=== PATIENT | male | born 1965 | race Caucasian/White ===

== ENCOUNTER 2022-08-23 16:09 | Emergency (ER) | payer BC, SELFPAY ==
[2022-08-23 16:23] VITALS: BP 115/80; PULSE 85; RESP 16; TEMP 36.9; O2SAT 97
--- NOTE | 2022-08-23 16:33 | ED.URI ---
HPI - URI/Sore Throat General Chief Complaint: Upper Respiratory Infection Stated Complaint: chills/abd pain /cough Time Seen by Provider: 08/23/22 16:46 Source: patient and RN notes reviewed Mode of arrival: ambulatory Limitations: no limitations History of Present Illness HPI Narrative: 57-year-old male presents with concern for 6 day history of chills, cough, upper chest discomfort, fatigue, abdominal discomfort, nasal congestion and ear pain. Reports exposure to COVID. MD elicited complaint: cough and sore throat Related Data Home Medications Medication Instructions Recorded Confirmed glimepiride 4 mg tablet mg 08/23/22 metformin 1,000 mg tablet mg 08/23/22 pantoprazole 40 mg tablet,delayed mg PO 08/23/22 08/23/22 release Allergies Allergy/AdvReac Type Severity Reaction Status Date / Time codeine AdvReac VOMITING Verified 08/23/22 16:20 Review of Systems Review of Systems: CONSTITUTIONAL: Denies malaise, chills, sweats, fatigue EYES: Denies visual changes, redness, or discharge. ENT: Reports rhinorrhea, congestion, ear pain. Denies sinus pain, otalgia CARDIOVASCULAR: Denies chest pain, palpitations, or edema. RESPIRATORY: Reports cough and chest congestion. Denies dyspnea. GASTROINTESTINAL: Reports abdominal pain. Denies nausea, vomiting, diarrhea SKIN: Denies rash or itching. MUSCULOSKELETAL: Reports myalgia. NEUROLOGIC: Denies headache. All systems reviewed & are unremarkable except as noted in HPI and below PMFSH Past Medical History Medical History (Updated 08/23/22 @ 16:52 by Neeta Antoine NP) Diabetes Gout Heart disease Surgical History Surgical History (Updated 10/26/20 @ 16:38 by Jeri Thao CMA) History of back surgery History of nasal surgery Comments At time of signature, agree with nursing past medical, surgical, social and family history. There is no relevant family history pertinent to the presenting complaint Exam Narrative: GENERAL: Nontoxic appearing and in no acute distress. HEAD: Normocephalic EYES: PERRLA, conjunctivae clear ENT: Nares clear, turbinates edematous and erythematous, clear discharge. Mucous membranes moist. Right TM pearly jameson with dull light reflex, left TM erythematous and; no tragal tenderness. Oropharynx not erythematous without lesions. Tonsils not enlarged and without exudate, no drooling, no hoarseness, no trismus, uvula midline. NECK: Supple. No lymphadenopathy CHEST: Clear to auscultation, breath sounds equal. No wheezing, rhonchi, rales, or stridor. No respiratory distress, speaks in full sentences. HEART: Regular rate and rhythm. No murmur heard. SKIN: Warm, dry, no rash. NEURO: Alert and oriented x3. PSYCH: Normal mood and affect Course Course Emergency Course: Patient is aware of diagnosis, understands and agrees to treatment plan. Anticipatory guidance given. Patient agrees to follow-up as directed and is aware of reasons to seek care at the emergency department. Portions of this record may have been created with voice recognition software Level of Care: Express Care Visit Vital Signs Vital signs: Vital Signs Temperature 98.4 F 08/23/22 16:23 Pulse Rate 85 08/23/22 16:23 Respiratory Rate 16 08/23/22 16:23 Blood Pressure 115/80 08/23/22 16:23 Pulse Oximetry 97 08/23/22 16:23 Oxygen Delivery Room Air 08/23/22 16:23 Temperature 98.4 F 08/23/22 16:23 Pulse Rate 85 08/23/22 16:23 Respiratory Rate 16 08/23/22 16:23 Blood Pressure 115/80 08/23/22 16:23 Pulse Oximetry 97 08/23/22 16:23 Oxygen Delivery Room Air 08/23/22 16:23 Reviewed. MDM - URI/Sore Throat MDM Narrative Medical decision making narrative: Differential diagnosis considered: Hua virus, strep pharyngitis, allergic rhinitis, upper respiratory tract infection, sinusitis, rhinosinusitis, nasopharyngitis. viral pharyngitis, otitis media, otitis externa, pneumonia, bronchitis, viral cough syndrome, viral syndrom
== END 2022-08-23 17:25 | disposition home or self-care (01) ==
PROVIDERS: Emergency Provider Nurse Practitioner
DX: H66.92 Otitis media, unspecified, left ear (principal); J40 Bronchitis, not specified as acute or chronic; Z20.822 Contact with and (suspected) exposure to COVID-19; E11.9 Type 2 diabetes mellitus without complications; M10.9 Gout, unspecified
CPT/HCPCS: 87426; 99213; C9803; G0463

== ENCOUNTER 2022-11-15 09:39 | Day surgery (SDC) | payer BC, SELFPAY ==
[2022-11-15] VITALS (10 sets, daily range): BP systolic 111–165; BP diastolic 75–106; PULSE 70–95; RESP 13–18; TEMP 36.4–36.7; O2SAT 93–100
--- NOTE | ~2022-11-15 | XR_ITS ---
Supine and upright views of the abdomen Clinical history: Abdominal pain Findings: Bowel gas pattern is nonspecific. No evidence for obstruction or free air. Peripherally james cified structure right upper quadrant suggest large gallstone. Osseous structures are intact. Impression: No definite renal stone seen. Probable large right upper quadrant gallstone. Reviewed, dictated and finalized at [facility]. Impression: No definite renal stone seen. Probable large right upper quadrant gallstone.
--- NOTE | ~2022-11-15 | CT_ITS ---
Non-contrast CT scan of the Abdomen and Pelvis Clinical indication: Left flank pain Technique: 2.5 mm axial scans were obtained through the abdomen and pelvis without intravenous or or al contrast. Dose reduction technique was used on this scan by utilizing automated exposure control a nd iterative reconstruction technique. The dose-length product (DLP) was 461.14 mGy-cm. COMPARISON: 03/07/2012 Findings: Images through the lung bases reveal subcentimeter groundglass nodules in the right lower lobe, compatible with infectious process. There is a 4 mm distal left ureteral stone (axial image 168). There is mild left hydroureteronephrosi s. No right renal or right ureteral stone. No right hydronephrosis. The liver, spleen, pancreas, and adrenals appear normal. 2.3 cm gallstone present. There is no aortic aneurysm. There is no evidence of bowel obstruction. Normal appendix. Images through the pelvis were performed. There is no evidence of ascites or lymphadenopathy. Urinary bladder unremarkable. No pelvic mass seen. Impression: 4 mm distal left ureteral stone with mild left hydroureteronephrosis. Cholelithiasis. Multiple subtle groundglass pulmonary nodular opacities in the right lower lobe, suspicious for atypi james infectious process. Reviewed, dictated and finalized at location . Impression: 4 mm distal left ureteral stone with mild left hydroureteronephrosis. Cholelithiasis. Multiple subtle groundglass pulmonary nodular opacities in the right lower lobe , suspicious for atypical infectious process.
--- NOTE | ~2022-11-15 | XR_ITS ---
EXAMINATION: XR retrograde pyelo w/stent LT DATE: 11/15/2022 15:44 INDICATION: Left ureteral stent placement TECHNIQUE: Fluoroscopic images from a left internal ureteral stent placement are submitted for review . 20 seconds of fluoroscopy time. 13 fluoroscopic images. FINDINGS: There is a left double-J internal ureteral stent projecting in expected position, with proximal [place] loop at the level of the renal pelvis and distal loop in the pelvis within the bladder lumen. IMPRESSION: 1. Left internal ureteral stent placement. Please refer to real-time procedural findings for detail s. Reviewed, dictated and finalized at location [facility]. IMPRESSION: 1. Left internal ureteral stent placement. Please refer to real-time procedur al findings for details.
[2022-11-15] MEDS: ONDANSETRON INJ 4 MG/2 ML VIAL IV PUSH (10:00)
[2022-11-15] MEDS: fentaNYL CITRATE INJ (*CRX) 100 MCG/2 ML VIAL IV PUSH (10:01)
--- NOTE | 2022-11-15 10:03 | PC.NURSE ---
Pt to CT scan via stretcher at this time.
[2022-11-15 10:04] LABS: Basophils Percent Auto 0.7 % (0.2-1.2); Eosinophils Absolute Auto 0.2 K/mm3 (0-0.3); Eosinophils Percent Auto 3.8 % (0-4.4); Hematocrit 46.6 % (42.0-52.0); Hemoglobin 15.6 g/dL (14.0-18.0); Immature Granulocyte Absolute 0.01 K/mm3 (0.00-0.031); Immature Granulocyte Percent A 0.2 % (0-0.5); Lymphocytes Absolute Auto 1.25 K/mm3 (0.9-3.2); Lymphocytes Percent Auto 27.9 % (18.3-44.2); Mean Corpuscular HGB Conc 33.5 g/dl (32-36); Mean Corpuscular Hemoglobin 28.7 pg (26-34); Mean Corpuscular Volume 85.8 fl (80-100); Mean Platelet Volume 10.2 fl (7.4-10.4); Monocytes Absolute Auto 0.4 K/mm3 (0.1-0.6); Monocytes Percent Auto 8.9 % (2.6-8.5); Neutrophils Absolute Auto 2.6 K/mm3 (1.3-6.7); Neutrophils Percent Auto 58.5 % (45.5-73.1); Platelet Count Result 236 k/mm3 (150-375); Red Blood Count 5.43 M/mm3 (4.6-6.20); Red Cell Distribution Width 12.5 % (11.5-14.5); White Blood Count 4.5 K/mm3 (4.5-10.0)
--- NOTE | 2022-11-15 10:14 | ED.ABDPAIN ---
HPI - Abdominal Pain General Chief Complaint: Abdominal Pain Stated Complaint: left flank pain Time Seen by Provider: 11/15/22 09:43 Source: patient Mode of arrival: ambulatory Limitations: no limitations History of Present Illness HPI narrative: This is a 57-year-old male presents to the ED with chief complaint of left flank pain beginning this morning. Patient reports the flank pain radiates into the left side of the abdomen. He reports urinary frequency and malodorous urine. He reports history of stones and had a lithotripsy about 7 years ago. Did not take any medications prior to arrival. Also endorses nausea and vomiting. Denies fevers, chills, chest pain, shortness of breath, problems with BMs. Related Data Home Medications Medication Instructions Recorded Confirmed glimepiride 4 mg tablet 4 mg PO BID 08/23/22 11/15/22 metformin 1,000 mg tablet 1,000 mg PO BID 08/23/22 11/15/22 atorvastatin 20 mg tablet 20 mg PO DAILY 11/15/22 11/15/22 azithromycin 250 mg tablet 250 mg PO DAILY 11/15/22 11/15/22 benzonatate 200 mg capsule 200 mg PO TID 11/15/22 11/15/22 candesartan 32 1 tablet PO HS 11/15/22 11/15/22 mg-hydrochlorothiazide 25 mg tablet diltiazem HCl 120 mg 120 mg PO DAILY 11/15/22 11/15/22 capsule,extended release 24 hr escitalopram oxalate 20 mg tablet 20 mg PO HS 11/15/22 11/15/22 insulin glargine U-300 conc 300 15 unit subcut DAILY 11/15/22 11/15/22 unit/mL (1.5 mL) subcutaneous pen (Toujeo SoloStar U-300 Insulin) Allergies Allergy/AdvReac Type Severity Reaction Status Date / Time codeine AdvReac VOMITING Verified 11/15/22 09:57 Review of Systems Review of Systems: CONSTITUTIONAL: Denies fever, chills, or sweats. EYES: Denies visual changes, redness, or discharge. ENT: Denies rhinorrhea, congestion, sore throat, or otalgia. CARDIOVASCULAR: Denies chest pain, palpitations, or edema. RESPIRATORY: Denies cough or dyspnea. GASTROINTESTINAL: See HPI GENITOURINARY: Denies dysuria or hematuria. SKIN: Denies rash or itching. MUSCULOSKELETAL: Denies back pain, joint pain, or myalgia. NEUROLOGIC: Denies headache, numbness, dizziness, or weakness. PSYCHIATRIC: Denies anxiety or depression. [facility] Past Medical History Medical History (Updated 11/15/22 @ 14:10 by Leroy Bueno MD) Diabetes Diabetes Gout Heart disease HTN (hypertension) Surgical History Surgical History History of back surgery History of nasal surgery Exam Narrative: GENERAL: Appears uncomfortable, writhing in bed. HEAD: Normocephalic, atraumatic. EYES: PERRLA and EOMI. ENT: Nares clear, no rhinorrhea or epistaxis. Mucous membranes moist. Oropharynx without tonsillar hypertrophy exudate or other lesions. NECK: Supple. No adenopathy or masses. CHEST: No respiratory distress. Clear to auscultation. No wheezes rales or rhonchi HEART: Regular rate and rhythm. No murmur heard. Normal peripheral pulses. ABDOMEN: Marked left flank tenderness present. Mild left lower quadrant tenderness. Soft, nontender, nondistended, normal active bowel sounds. EXTREMITIES: Normal range of motion. No edema. SKIN: Warm, dry, no rash. NEURO: Alert and oriented x3. No focal deficits. PSYCH: Normal mood and affect. Course Course Emergency Course: Consult 1311: Spoke with Dr. Velazquez (urology) who recommends outpatient surgery to remove the stone today. One of the PAs will see the patient here and then patient will be discharged for outpatient procedure. Vital Signs Vital signs: Vital Signs Temperature 98 F 11/15/22 09:44 Pulse Rate 95 11/15/22 09:44 Respiratory Rate 18 11/15/22 09:44 Blood Pressure 165/106 H 11/15/22 09:44 Pulse Oximetry 100 11/15/22 09:44 Oxygen Delivery Room Air 11/15/22 09:44 Temperature 98.0 F 11/15/22 15:48 Pulse Rate 80 11/15/22 17:21 Respiratory Rate 16 11/15/22 17:21 Blood Pressure 124/75 11/15/22 17:21 Pulse Oximetry 9
[2022-11-15 10:33] LABS: Appearance Urine Cloudy (Clear); Bacteria Urine None Seen /hpf; Bilirubin Urine 1+ (Negative); Blood Urine 3+ (Negative); Calcium Oxalate Crystals Urine Present /hpf; Color Urine Dark Yellow (Yellow); Glucose Urine UA Trace mg/dL (Negative); Ketones Urine 1+ mg/dL (Negative); Leukocyte Esterase Ur Trace LEU/UL (Negative); Need Manual Microscopic Reviewed; Nitrate Urine Negative (Negative); Non Pathogenic Casts 0-2; Protein Urine 2+ mg/dL (Negative); RBC Urine >100 /hpf (0-2); Squamous Epithelial Cell Urine Occasional /hpf (Few)
[2022-11-15 10:34] LABS: Add Urine Microscopic? YES; Specific Grav Ur 1.039 (1.001-1.035)
[2022-11-15 10:36] LABS: Alanine Aminotransferase 35 U/L (6-50); Albumin Level 4.6 g/dL (3.5-5.1); Alkaline Phosphatase 117 U/L (38-126); Anion Gap 10 mmol/L (8-16); Aspartate Amino Transferase 28 U/L (17-59); Bilirubin,Total 0.9 mg/dL (0.2-1.3); Blood Urea Nitrogen 18 mg/dL (9-20); Calcium 9.2 mg/dL (8.4-10.2); Carbon Dioxide 24 mmol/L (22-30); Chloride 107 mmol/L (98-107); Estimated CRCL calculation 98 ml/min; Estimated Glomerular Filt Rate > 60; Glucose 185 mg/dL (65-110); Sodium 141 mmol/L (137-145)
[2022-11-15] MEDS: fentaNYL CITRATE INJ (*CRX) 100 MCG/2 ML VIAL 50 MCG IV PUSH ×2 (12:46→13:55)
--- NOTE | 2022-11-15 12:50 | PC.NURSE ---
This RN called pts contact Deloris at [phone] per pts request to ask contact to come be w/ pt and give update on pt status.
--- NOTE | 2022-11-15 13:29 | PM.IMHP ---
H&P: HPI History of Present Illness Date/Time: 11/15/22 13:29 Chief Complaint: Obstructing left distal ureteral calculus with renal colic 5 mm Narrative: Pleasant 57-year-old male who presented to the emergency room with severe left flank pain. Evaluation emergency room revealed a 4-5 mm distal left ureteral stone. His white count is normal and he is afebrile however the there unable to control his pain. As such we have decided to proceed with definitive therapy with cysto left retrograde pyelogram left ureteroscopy with possible holmium laser stone extraction and stent placement. Patient has a history of a stone about 6-7 years ago. Denied fevers at home. Review of Systems Review of Systems: All systems reviewed & are unremarkable except as noted in HPI and below PMFSH Past Medical History Medical History Diabetes Gout Heart disease Surgical History Surgical History History of back surgery History of nasal surgery Meds Home Medications and Allergies Home Medications Medication Instructions Recorded Confirmed Type amoxicillin 875 mg tablet 875 mg PO TID 10 days #30 tabs 08/23/22 Rx glimepiride 4 mg tablet mg 08/23/22 History metformin 1,000 mg tablet mg 08/23/22 History methylprednisolone 4 mg tablets in See Rx Instructions PO .COMPLEX 08/23/22 Rx a dose pack (Medrol (Les)) #21 ea pantoprazole 40 mg tablet,delayed mg PO 08/23/22 08/23/22 History release promethazine-DM 6.25 mg-15 mg/5 mL 5 ml PO Q4-6H PRN cough #120 mL 08/23/22 Rx oral syrup ondansetron 4 mg disintegrating 4 mg PO Q8H PRN nausea and 11/15/22 Rx tablet vomiting #10 tabs tamsulosin 0.4 mg capsule (Flomax) 0.4 mg PO DAILY #7 caps 11/15/22 Rx Allergies Allergy/AdvReac Type Severity Reaction Status Date / Time codeine AdvReac VOMITING Verified 11/15/22 09:57 Vital Signs Vital Signs - 24 hr 11/15/22 09:44 11/15/22 10:19 11/15/22 11:57 Temperature 36.6 C Pulse Rate 95 71 73 Respiratory Rate 18 15 15 Blood Pressure 165/106 H 149/79 H 146/77 H Pulse Oximetry 100 95 96 Oxygen Delivery Room Air Exam Const: General: cooperative; No comfortable Eyes: General: appearance normal, both eyes and all related structures Resp: Effort & Inspection: normal respiratory effort Cardio: Rate: regular rate Rhythm: regular rhythm GI: Inspection: normal to inspection H&P: Results Labs Labs: Short CBC 11/15/22 Range/Units 09:55 WBC 4.5 (4.5-10.0) K/mm3 Hgb 15.6 (14.0-18.0) g/dL Hct 46.6 (42.0-52.0) % Plt Count 236 (150-375) k/mm3 BMP 11/15/22 09:55 Sodium 141 Potassium 4.0 Chloride 107 Carbon Dioxide 24 BUN 18 Creatinine 1.00 Glucose 185 H Calcium 9.2 Liver Function 11/15/22 Range/Units 09:55 Total Bilirubin 0.9 (0.2-1.3) mg/dL AST 28 (17-59) U/L ALT 35 (6-50) U/L Alkaline Phosphatase 117 (38-126) U/L Albumin 4.6 (3.5-5.1) g/dL Urine 11/15/22 Range/Units 09:55 Urine Color Dark yellow (Yellow) Urine Appearance Cloudy H (Clear) Urine pH 5.0 (5.0-9.0) Ur Specific [place] 1.039 H (1.001-1.035) Urine Protein 2+ H (Negative) mg/dL Urine Glucose (UA) Trace H (Negative) mg/dL Assessment and Plan Assessment and plan (1) Calculus of distal left ureter: Code(s): N20.1 - Calculus of ureter Status: Acute Plan Proceed with cysto, left retrograde pyelogram, left ureteroscopy with holmium laser, stone extraction, stent placement
[2022-11-15] MEDS: LACTATED RINGERS 1,000 ML 30 ML IV CONT (13:45)
--- NOTE | 2022-11-15 14:09 | WPDANESEPPF ---
Anes - Initial Pre Proc Eval Procedure: Operation Date: 11/15/22 14:30 Proposed Procedures p Cystoscopy, Left Ureteroscopy, Left Retrograde Pyelogram, Stone Extraction, Possible Holmium Laser Lithotripsy, Possible Left Ureteral Stent Placement - Valdemar Velazquez MD Date/Time: 11/15/22 14:09 Surgeon: Valdemar Velazquez MD Pre Op Diagnosis: left flank pain Patient Data Age: 57 Gender: M Height: 1.83 m Weight: 118.2 kg Last Vital Signs Temp 36.6 C 11/15/22 09:44 Pulse 73 11/15/22 11:57 Resp 15 11/15/22 11:57 BP 146/77 H 11/15/22 11:57 Pulse Ox 96 11/15/22 11:57 O2 Del Method Room Air 11/15/22 09:44 Allergies Allergy/AdvReac Type Severity Reaction Status Date / Time codeine AdvReac VOMITING Verified 11/15/22 09:57 Home Medications Medication Instructions Recorded Confirmed Type amoxicillin 875 mg tablet 875 mg PO TID 10 days #30 tabs 08/23/22 Rx glimepiride 4 mg tablet mg 08/23/22 History metformin 1,000 mg tablet mg 08/23/22 History methylprednisolone 4 mg tablets in See Rx Instructions PO .COMPLEX 08/23/22 Rx a dose pack (Medrol (Les)) #21 ea pantoprazole 40 mg tablet,delayed mg PO 08/23/22 08/23/22 History release promethazine-DM 6.25 mg-15 mg/5 mL 5 ml PO Q4-6H PRN cough #120 mL 08/23/22 Rx oral syrup ondansetron 4 mg disintegrating 4 mg PO Q8H PRN nausea and 11/15/22 Rx tablet vomiting #10 tabs tamsulosin 0.4 mg capsule (Flomax) 0.4 mg PO DAILY #7 caps 11/15/22 Rx Laboratory Tests 11/15/22 11/15/22 11/15/22 09:55 09:55 09:55 WBC 4.5 K/mm3 K/mm3 (4.5-10.0) RBC 5.43 M/mm3 M/mm3 (4.6-6.20) Hgb 15.6 g/dL g/dL (14.0-18.0) Hct 46.6 % % (42.0-52.0) MCV 85.8 fl fl (80-100) MCH 28.7 pg pg (26-34) MCHC 33.5 g/dl g/dl (32-36) RDW 12.5 % % (11.5-14.5) Plt Count 236 k/mm3 k/mm3 (150-375) MPV 10.2 fl fl (7.4-10.4) Immature Gran % (Auto) 0.2 % % (0-0.5) Neut % (Auto) 58.5 % % (45.5-73.1) Lymph % (Auto) 27.9 % % (18.3-44.2) [place] % (Auto) 8.9 % H % (2.6-8.5) Eos % (Auto) 3.8 % % (0-4.4) Baso % (Auto) 0.7 % % (0.2-1.2) Lymph # (Auto) 1.25 K/mm3 K/mm3 (0.9-3.2) [place] # (Auto) 0.4 K/mm3 K/mm3 (0.1-0.6) Eos # (Auto) 0.2 K/mm3 K/mm3 (0-0.3) Baso # (Auto) 0.0 K/mm3 K/mm3 (0.0-0.1) Abs Immat Gran (auto) 0.01 K/mm3 K/mm3 (0.00-0.031) Absolute Neuts (auto) 2.6 K/mm3 K/mm3 (1.3-6.7) Absolute Nucleated RBC 0.0 K/mm3 K/mm3 (0.0-0.012) Nucleated RBC % 0.0 % % (0.0-0.2) Sodium 141 mmol/L mmol/L (137-145) Potassium 4.0 mmol/L mmol/L (3.4-5.0) Chloride 107 mmol/L mmol/L (98-107) Carbon Dioxide 24 mmol/L mmol/L (22-30) Anion Gap 10 mmol/L mmol/L (8-16) BUN 18 mg/dL mg/dL (9-20) Creatinine 1.00 mg/dL mg/dL (0.7-1.3) Estim Creat Clear Calc 98 ml/min ml/min Estimated GFR > 60 (59 - ) Glucose 185 mg/dL H mg/dL (65-110) Calcium 9.2 mg/dL mg/dL (8.4-10.2) Total Bilirubin 0.9 mg/dL mg/dL (0.2-1.3) AST 28 U/L U/L (17-59) ALT 35 U/L U/L (6-50) Alkaline Phosphatase 117 U/L U/L (38-126) Total Protein 8.0 g/dL g/dL (6.3-8.2) Albumin 4.6 g/dL g/dL (3.5-5.1) Urine Color Dark yellow (Yellow) Urine Appearance Cloudy H (Clear) Urine pH 5.0 (5.0-9.0) Ur Specific [place] 1.039 H (1.001-1.035) Urine Protein 2+ mg/dL H mg/dL (Negative) Urine Glucose (UA) Trace mg/dL H mg/dL (Negative) Urine Ketones 1+ mg/dL H mg/dL (Negative) Ur Blood (Man) 3+ H (Negative) Urine Nitrate Negative (Negative) Urine Bili
--- NOTE | 2022-11-15 14:48 | WPDHPUPDATE1 ---
History and Physical Update Update Date/Time: 11/15/22 14:48 History and Physical has been reviewed, including an updated exam of the patient. There are NO changes in the patient's condition. Risks, benefits, and alternatives have been discussed and questions answered. Patient agrees to proceed with procedure. Proceed with cysto, left retrograde, left ureteroscopy with stone extraction, possible laser, stent placement
[2022-11-15 15:03] LABS: Glucose Point of Care 153 mg/dl (65-105)
[2022-11-15] MEDS: ceFAZolin 2 GM/D5W 50 ML 2 GM/50 ML BAG IVPB (15:13)
[2022-11-15] MEDS: LIDOCAINE HCL 2% GEL UROJET 10 ML PKG MUCOUS MEM (15:26)
--- NOTE | 2022-11-15 15:43 | W.PM.PROC2 ---
Procedure Note - Detailed Date of Procedure 11/15/22 Pre-op Diagnosis left flank pain with left ureteral calculus Post-op Diagnosis Same Procedure Performed Cystoscopy, left retrograde pyelogram, left ureteroscopy, left ureteral stent placement, extraction of left ureteral calculus Surgeon Valdemar Velazquez MD Anesthesia General Description of Procedure Patient is taken to the operative suite correctly identified. Once anesthesia was obtained was placed in dorsal lithotomy position and prepped and draped usual sterile fashion. Twenty-two [place] scope was inserted the bladder he does have some lateral lobe hypertrophy and elevated median bar area. Both ureteral orifices normal anatomic position. The left orifice was cannulated with a guidewire. It did not meet any resistance but given her CT findings we went ahead and dilated with an 8/10 dilator. Rigid ureteral scope was inserted in the orifice. It was edematous and erythematous. No stone was visualized. At this point a flexible ureteral scope was inserted all the way up to the kidney and the entire kidney was inspected. No tumors or stones noted. Pyelogram was then performed to confirm stent placement of the stent. 4.8 [place] contour stent was then placed with the proximal end coiled in the renal pelvis and distal in the bladder. I then reinspected the bladder and was noted that I saw a stone which was somewhat lodged behind the bladder neck area and the trigone. I was able to retrieve this and sent it for analysis. 2% viscous lidocaine was inserted into the urethra patient is taken recovery stable condition. He will be discharged home with pain meds and antibiotic and follow up in a week for stent removal. Please send a copy of op note to my office. Estimated Blood Loss 0 Drains Yes Packing No Pathology Yes Complications No immediate complications Condition Stable Disposition PACU
--- NOTE | 2022-11-15 17:36 | SUR.PHASEII ---
1730-PT READY TO DISCHARGE, SIGNIFICANT OTHER NOT HERE, MSG LEFT.
== END 2022-11-15 18:03 | disposition home or self-care (01) ==
LOC: ANHED 13:21 → ANHSURGERY 13:36
PROVIDERS: Emergency Provider Physician Assistant; PCP Internal Medicine; Visit Provider Urology
PROC: (CPT 52352; principal; 2022-11-15 14:30)
DX: N13.2 Hydronephrosis with renal and ureteral calculous obstruction (principal); E11.9 Type 2 diabetes mellitus without complications; I11.9 Hypertensive heart disease without heart failure; M10.9 Gout, unspecified; Z79.84 Long term (current) use of oral hypoglycemic drugs; Z79.4 Long term (current) use of insulin
CPT/HCPCS: 52332; 52352; 36415; 74018; 74176; 74420; 80053; 81001; 82365; 82948; 85025; 87086; 88300; 96374; 96375; 96376; 99285; C1769; C2617; J0690; J2250; J2405; J2704; J3010; J7120

== ENCOUNTER 2022-11-17 12:15 | Emergency (ER) | payer BC, SELFPAY ==
--- NOTE | ~2022-11-17 | CT_ITS ---
Non-contrast CT scan of the Abdomen and Pelvis Clinical indication: Left flank pain Technique: 2.5 mm axial scans were obtained through the abdomen and pelvis without intravenous or or al contrast. Dose reduction technique was used on this scan by utilizing automated exposure control a nd iterative reconstruction technique. The dose-length product (DLP) was 1123.35 mGy-cm. COMPARISON: 11/15/2022 Findings: Images through the lung bases reveal patchy groundglass opacities at the right lung base, compatible with pneumonia. Left ureteral stent is now in place. Left hydronephrosis is resolved. There is minimal left periurete ral stranding. Previously noted distal left ureteral stone is no longer visualized. Right kidney unre markable. The liver, spleen, pancreas, and adrenals appear normal. Stable calcified gallstone. There is no aort ic aneurysm. There is no evidence of bowel obstruction. Images through the pelvis were performed. There is no evidence of ascites or lymphadenopathy. Urinary bladder unremarkable. Prostate gland and seminal vesicles are unremarkable. Impression: Status post interval placement of left ureteral stent. There is mild left periureteral inflammatory s tranding, nonspecific. Previously identified distal left ureteral stone is no longer visualized. No left hydronephrosis. Right lower lobe pneumonia, unchanged. Cholelithiasis. Reviewed, dictated and finalized at location . Impression: Status post interval placement of left ureteral stent. There is mild left periu reteral inflammatory stranding, nonspecific. Previously identified distal left ureteral stone is no longer visualized. No le ft hydronephrosis. Right lower lobe pneumonia, unchanged. Cholelithiasis.
[2022-11-17 12:21] VITALS: BP 132/84; PULSE 90; RESP 33; TEMP 36.5; O2SAT 100
--- NOTE | 2022-11-17 12:50 | ECG_ITS ---
Measurements Intervals [place] Rate: 85 P: 45 DC: 192 QRS: -18 QRSD: 105 T: 44 QT: 387 QTc: 461 Interpretive Statements SINUS RHYTHM NONSPECIFIC ST AND T-WAVE ABNORMALITY NO PREVIOUS ECG AVAILABLE FOR COMPARISON Electronically Signed On 11-17-2022 18:34:06 CDT by Carina Reid M.D.
[2022-11-17 13:20] LABS: Bacteria Urine None Seen /hpf; Non Pathogenic Casts 0-2; RBC Urine >100 /hpf (0-2); Squamous Epithelial Cell Urine None seen /hpf (Few)
[2022-11-17 13:48] LABS: Appearance Urine Turbid (Clear); Bilirubin Urine 1+ (Negative); Blood Urine 3+ (Negative); Color Urine Orange (Yellow); Glucose Urine UA Negative (Negative); Ketones Urine Trace mg/dL (Negative); Leukocyte Esterase Ur 2+ LEU/UL (Negative); Nitrate Urine Negative (Negative); Protein Urine 2+ mg/dL (Negative); Specific Grav Ur 1.016 (1.001-1.035)
--- NOTE | 2022-11-17 13:53 | PC.NURSE ---
Pt thinks he has a kidney stone on the left side. Pt recently had stents placed for kidney stones. States he is having pain in his left flank. Painful urination and bleeding with urination. States these symptoms have been ongoing prior to the stent but feels the pain and bleeding have increased this morning.
[2022-11-17 13:54] LABS: Basophils Percent Auto 0.4 % (0.2-1.2); Eosinophils Absolute Auto 0.1 K/mm3 (0-0.3); Eosinophils Percent Auto 0.8 % (0-4.4); Hemoglobin 14.6 g/dL (14.0-18.0); Immature Granulocyte Absolute 0.04 K/mm3 (0.00-0.031); Immature Granulocyte Percent A 0.6 % (0-0.5); Lymphocytes Absolute Auto 0.92 K/mm3 (0.9-3.2); Mean Corpuscular HGB Conc 33.2 g/dl (32-36); Mean Corpuscular Hemoglobin 28.4 pg (26-34); Mean Corpuscular Volume 85.6 fl (80-100); Mean Platelet Volume 9.8 fl (7.4-10.4); Monocytes Absolute Auto 0.6 K/mm3 (0.1-0.6); Monocytes Percent Auto 8.1 % (2.6-8.5); Neutrophils Absolute Auto 5.5 K/mm3 (1.3-6.7); Neutrophils Percent Auto 77.1 % (45.5-73.1); Platelet Count Result 238 k/mm3 (150-375); Red Blood Count 5.14 M/mm3 (4.6-6.20); Red Cell Distribution Width 12.1 % (11.5-14.5); White Blood Count 7.1 K/mm3 (4.5-10.0)
[2022-11-17 13:55] LABS: Add Urine Microscopic? YES
--- NOTE | 2022-11-17 14:00 | ED.GENADULT ---
HPI - General Adult General Chief complaint: Urogenital-Male Stated complaint: kidney stone- peeing blodo Time Seen by Provider: 11/17/22 13:53 History of Present Illness HPI narrative: 57-year-old male presented the ED for evaluation of increased left flank pain with associated nausea and vomiting. Patient had a stent placed by Dr. Velazquez. Patient did take some tramadol this morning but did have emesis immediately afterwards. Patient states he did have increased pain with urination. Patient has also been having hematuria. Related Data Home Medications Medication Instructions Recorded Confirmed glimepiride 4 mg tablet 4 mg PO BID 08/23/22 11/15/22 metformin 1,000 mg tablet 1,000 mg PO BID 08/23/22 11/15/22 atorvastatin 20 mg tablet 20 mg PO DAILY 11/15/22 11/15/22 azithromycin 250 mg tablet 250 mg PO DAILY 11/15/22 11/15/22 benzonatate 200 mg capsule 200 mg PO TID 11/15/22 11/15/22 candesartan 32 1 tablet PO HS 11/15/22 11/15/22 mg-hydrochlorothiazide 25 mg tablet diltiazem HCl 120 mg 120 mg PO DAILY 11/15/22 11/15/22 capsule,extended release 24 hr escitalopram oxalate 20 mg tablet 20 mg PO HS 11/15/22 11/15/22 insulin glargine U-300 conc 300 15 unit subcut DAILY 11/15/22 11/15/22 unit/mL (1.5 mL) subcutaneous pen (Toujeo SoloStar U-300 Insulin) Allergies Allergy/AdvReac Type Severity Reaction Status Date / Time codeine AdvReac VOMITING Verified 11/17/22 12:25 Review of Systems Review of Systems: All systems reviewed & are unremarkable except as noted in HPI and below PMFSH Past Medical History Medical History (Updated 11/17/22 @ 15:52 by Arash Alicia MD) Diabetes Diabetes Gout Heart disease HTN (hypertension) Surgical History Surgical History History of back surgery History of nasal surgery Exam Narrative: APPEARANCE: Well appearing, uncomfortable due to left flank pain HEAD: normocephalic, atraumatic. EYES: PERRLA/EOMI, conjunctivae clear. NECK: Supple. No adenopathy, no masses. RESPIRATORY: Airway patent, respirations nonlabored. Clear to auscultation bilaterally, no rales, rhonchi, wheezing. CARDIOVASCULAR: Regular rate and rhythm without murmurs rubs or gallops. ABDOMINAL: Soft, left flank CVA MUSCULOSKELETAL: Moves all extremities. Strength/ROM intact, No edema, No calf tenderness. NEURO: Alert. Cranial nerves II through XII intact. Grossly intact SKIN: Warm, dry. Normal Color Course Course Emergency Course: 57-year-old male presented to the ED for evaluation of left flank pain. Patient was provided IV medications for nausea and for pain control. Patient did feel improved with treatment. Patient is afebrile with no leukocytosis. Patient's hemoglobin is stable. Patient's creatinine is at his normal baseline. UA does show evidence of hematuria and did have some increased white blood cells. CT scan did show evidence of inflammatory changes. Case was discussed with the nurse practitioner on 4 Dr. Velazquez. Patient will be provided oxybutynin, Keflex and medications for pain control. Patient and family were updated on the results of the work-up and plan for follow-up. All questions and concerns were addressed. Patient was well-appearing at time of discharge. Vital Signs Vital signs: Vital Signs Temperature 97.7 F 11/17/22 12:21 Pulse Rate 90 11/17/22 12:21 Respiratory Rate 33 H 11/17/22 12:21 Blood Pressure 132/84 11/17/22 12:21 Pulse Oximetry 100 11/17/22 12:21 Oxygen Delivery Room Air 11/17/22 12:21 Temperature 97.7 F 11/17/22 12:21 Pulse Rate 89 11/17/22 16:45 Respiratory Rate 18 11/17/22 16:45 Blood Pressure 158/89 H 11/17/22 16:45 Pulse Oximetry 98 11/17/22 16:45 Oxygen Delivery Room Air 11/17/22 12:21 Medical Decision Making Differential Diagnosis Differential Diagnosis: Retained ureteral calculi, stent malfunction, hydronephrosis, urinary tract infection, co
[2022-11-17] MEDS: ONDANSETRON INJ 4 MG/2 ML VIAL IV PUSH (14:08)
[2022-11-17] MEDS: HYDROmorphone HCL INJ (*CRX) 1 MG/ML SYR 0.5 MG IV PUSH (14:10)
[2022-11-17 14:14] LABS: Alanine Aminotransferase 30 U/L (6-50); Albumin Level 4.2 g/dL (3.5-5.1); Alkaline Phosphatase 112 U/L (38-126); Anion Gap 10 mmol/L (8-16); Aspartate Amino Transferase 29 U/L (17-59); Bilirubin,Total 1.1 mg/dL (0.2-1.3); Blood Urea Nitrogen 14 mg/dL (9-20); Carbon Dioxide 25 mmol/L (22-30); Chloride 107 mmol/L (98-107); Estimated CRCL calculation 120 ml/min; Estimated Glomerular Filt Rate > 60; Glucose 123 mg/dL (65-110); Potassium 3.9 mmol/L (3.4-5.0); Sodium 142 mmol/L (137-145)
[2022-11-17] MEDS: oxyBUTYnin CHLORIDE 5 MG TABLET PO (16:27)
[2022-11-17 16:45] VITALS: BP 158/89; PULSE 89; RESP 18; O2SAT 98
== END 2022-11-17 16:50 | disposition home or self-care (01) ==
PROVIDERS: Physician Assistant; Emergency Provider Emergency Medicine; PCP Internal Medicine
DX: R10.9 Unspecified abdominal pain (principal); R31.9 Hematuria, unspecified; E11.9 Type 2 diabetes mellitus without complications; M10.9 Gout, unspecified; I11.9 Hypertensive heart disease without heart failure; Z96.0 Presence of urogenital implants; Z79.85 Long-term (current) use of injectable non-insulin antidiabetic drugs; Z79.4 Long term (current) use of insulin; K80.20 Calculus of gallbladder without cholecystitis without obstruction; R94.31 Abnormal electrocardiogram [ECG] [EKG]
CPT/HCPCS: 36415; 74176; 80053; 81001; 85025; 87086; 93005; 96365; 96375; 99284; A9270; J0696; J1170; J2405